=== PATIENT | male | born 1950 | race Caucasian/White ===

== ENCOUNTER 2017-08-26 06:55 | Emergency (ER) | payer MEDICARE ==
[2017-08-26 07:25] LABS: EOS # 0.1 (0.04-0.40); EOS % 0.8 % (0.0-4.0); HEMATOCRIT 45.8 % (42.0-52.0); HEMOGLOBIN 15.4 g/dL (13.5-18.0); LYMPH# 1.3 (1.50-4.00); MEAN CELL VOLUME 87 fl (78-100); MEAN CORPUSCULAR HEMOGLOBIN 29 pg (27-31); MEAN CORPUSCULAR HGB CONC 34 g/dL (33-37); MEAN PLATELET VOLUME 11.3 fl (7.4-10.4); MONO # 0.9 (0.20-0.80); PLATELET COUNT 216 K/mm3 (130-400); RED BLOOD COUNT 5.25 M/mm3 (4.20-5.60); WHITE BLOOD COUNT 8.2 K/mm3 (4.8-10.8)
[2017-08-26 07:36] LABS: ALBUMIN 3.5 g/dL (3.5-5.0); BUN/CREATININE RATIO 22.6 (6.0-26.0); CALCIUM 8.7 mg/dL (8.4-10.2); POTASSIUM 4.2 mmol/L (3.6-5.0); TOTAL PROTEIN 6.2 g/dL (6.3-8.2)
[2017-08-26 07:43] LABS: TROPONIN-I < 0.03 ng/mL (0.00-0.06)
[2017-08-26 09:18] VITALS: BP 123/67
== END 2017-08-26 08:32 | disposition short-term general hospital (02) ==
LOC: ED 06:55
PROVIDERS: Physician Assistant
DX: R00.1 Bradycardia, unspecified (principal); I44.1 Atrioventricular block, second degree; R42 Dizziness and giddiness; Z88.0 Allergy status to penicillin
CPT/HCPCS: J0461; J7030

== ENCOUNTER 2017-09-12 14:28 | Outpatient (RCR) | payer MEDICARE | END 2017-12-08 11:24 | disposition home or self-care (01) | LOC: CARDREHAB 14:28 → CARDLAB 15:08 → CARDREHAB 12-08 11:24 | DX: Z48.812 Encounter for surgical aftercare following surgery on the circulatory system (principal); Z95.5 Presence of coronary angioplasty implant and graft ==

== ENCOUNTER → 2019-09-06 | Outpatient (CLI) | payer MEDICARE | LOC: RAD 12:38 | DX: M16.0 Bilateral primary osteoarthritis of hip (principal); M17.0 Bilateral primary osteoarthritis of knee ==

== ENCOUNTER → 2020-01-09 | Outpatient (CLI) | payer MEDICARE | LOC: RAD 10:00 | DX: M17.0 Bilateral primary osteoarthritis of knee (principal) ==

== ENCOUNTER → 2020-02-06 | Outpatient (CLI) | payer MEDICARE ==
[2020-02-06 11:20] LABS: HEMATOCRIT 44.7 % (42.0-52.0); HEMOGLOBIN 14.6 g/dL (13.5-18.0); MEAN CELL VOLUME 84 fl (78-100); MEAN CORPUSCULAR HEMOGLOBIN 27 pg (27-31); MEAN CORPUSCULAR HGB CONC 33 g/dL (33-37); MEAN PLATELET VOLUME 9.6 fl (7.4-10.4); PLATELET COUNT 336 K/mm3 (130-400); RED BLOOD COUNT 5.34 M/mm3 (4.20-5.60); RED CELL DISTRIBUTION WIDTH 14.4 % (11.5-14.5); WHITE BLOOD COUNT 7.6 K/mm3 (4.8-10.8)
[2020-02-06 12:13] LABS: LYMPHOCYTE 23 % (20-51); MONOCYTE 9 % (3-10); NEUTROPHILS 67 % (42-75)
[2020-02-06 12:22] LABS: ERYTHROCYTE SEDIMENTATION RATE 5 mm/hr (0-20)
== END ==
LOC: LAB 10:55
DX: M25.552 Pain in left hip (principal)